=== PATIENT | male | born 1975 | race Caucasian/White ===

== ENCOUNTER 2022-04-19 09:42 | Emergency (ER) | payer MEDICAID ==
[~2022-04-19] VITALS: Ht 175.3 cm; Wt 104.5 kg
[2022-04-19] MEDS ORDERED: HYDROcodone/acetaminophen 5mg/325mg tablet PO ONE (10:35)
[2022-04-19] MEDS ORDERED: amox tr/potassium clavulanate 875/125mg TAB PO ONE (10:35)
[2022-04-19] MEDS ORDERED: HYDR-3965 PO (10:50)
[2022-04-19] MEDS ORDERED: AMOX-117 PO (10:50)
[2022-04-19 11:01] VITALS: BP 149/93
== END 2022-04-19 11:04 | disposition home or self-care (01) ==
LOC: ER 09:42
DX: K04.7 Periapical abscess without sinus (principal); Z79.899 Other long term (current) drug therapy
CPT/HCPCS: 99283